=== PATIENT | male | born 1955 | race American Indian/Alaskan Native ===

== ENCOUNTER 2016-11-23 06:21 | Day surgery (SDC) | payer OTHER ==
[~2016-11-23 06:21] MED LIST: Lactated Ringers 1,000 ML IV SCH; ceFAZolin 2 GM in Premix Bag 1 BAG IV SCH
[2016-11-23] MEDS ORDERED: Dexamethasone 4 MG/ML 5 ML MDV ONE (06:51)
[2016-11-23] MEDS ORDERED: Ondansetron 4 MG/2 ML SDV ONE (06:51)
[2016-11-23] MEDS ORDERED: fentaNYL 250 MCG/5 ML SDV ONE (06:51)
[2016-11-23] MEDS ORDERED: Succinylcholine/Normal Saline 200 MG/10 ML Syringe ONE (06:51)
[2016-11-23] MEDS ORDERED: Midazolam 1 MG/ML 2 ML SDV ONE (06:51)
[2016-11-23] MEDS ORDERED: Rocuronium 10 MG/ML 10 ML Syringe ONE (06:51)
[2016-11-23] MEDS ORDERED: Propofol 200 MG/20 ML SDV ONE (06:51)
[2016-11-23] MEDS ORDERED: Neostigmine Methylsulfate 1 MG/ML 5 ML Syringe ONE (06:52)
--- NOTE | 2016-11-23 07:02 | PCM.PREANE ---
Preanesthetic Assessment - Anesthesia/Transfusion/Family Hx Anesthesia History: Prior Anesthesia Without Reaction Type of Anesthesia Reaction: Excessive Nausea/Vomiting Family History of Anesthesia Reaction: No Transfusion History: No Prior Transfusion(s) Intubation History: Unknown - Review of Systems General: No Symptoms Pulmonary: No Symptoms Cardiovascular: No Symptoms Gastrointestinal: No symptoms Neurological: No Symptoms Other: Reports: None - Physical Assessment O2 Sat by Pulse Oximetry: 98 Respiratory Rate: 16 Vital Signs: Last Vital Signs Temp 36.3 C 11/23/16 06:34 Pulse 74 11/23/16 06:34 Resp 16 11/23/16 06:34 BP 122/85 11/23/16 06:34 Pulse Ox 98 11/23/16 06:34 Height: 1.8 m Weight: 92.079 kg ASA Class: 2 Mental Status: Alert & Oriented x3 Airway Class: Mallampati = 2 Dentition: Reports: Normal Dentition Thyro-Mental Finger Breadths: 3 Mouth Opening Finger Breadths: 3 ROM/Head Extension: Full Lungs: Clear to auscultation, Normal respiratory effort Cardiovascular: Regular Rate, Regular Rhythm - Allergies Allergies/Adverse Reactions: Allergies Allergy/AdvReac Type Severity Reaction Status Date / Time morphine Allergy Nausea and Verified 11/20/16 12:18 Vomiting - Blood Blood Available: No - Anesthesia Plan Pre-Op Medication Ordered: None - Acknowledgements Anesthesia Type Planned: General Anesthesia Pt an Appropriate Candidate for the Planned Anesthesia: Yes Alternatives and Risks of Anesthesia Discussed w Pt/Guardian: Yes Pt/Guardian Understands and Agrees with Anesthesia Plan: Yes PreAnesthesia Questionnaire HEENT History: Reports: Other (See Below) Other HEENT History: wears glasses Gastrointestinal History: Reports: GERD Other Gastrointestinal History: hx diverticulitis Genitourinary History: Reports: None - Past Surgical History Head Surgeries/Procedures: Reports: None GI Surgical History: Reports: Colon (sigmoid resection), Hernia, Inguinal ( left inguinal hernia repair x2) Other GI Surgeries/Procedures: hx left hemicolectomy Male Surgical History: Reports: Vasectomy - SUBSTANCE USE Smoking Status *Q: Never Smoker Recreational Drug Use History: No - HOME MEDS Home Medications: Home Meds Fish Oil/[place]-3 Fatty Acids [Fish Oil 1,000 MG] 1,000 mg PO DAILY 11/20/16 [ History] Folic Acid 1 mg PO DAILY 11/20/16 [History] Multivits-Minerals/FA/Lycopene [One-A-Day Men's Tablet] 1 tab PO DAILY 11/20/16 [History] RABEprazole Sodium [Rabeprazole Sodium] 20 mg PO ASDIRECTED PRN 11/20/16 [ History] - CURRENT (IN HOUSE) MEDS Current Meds: Current Medications Lactated Ringer's (Ringers, Lactated) 1,000 mls @ 125 mls/hr IV ASDIRECTED ADAM Last Admin: 11/23/16 06:35 Dose: 125 mls/hr Cefazolin Sodium/Dextrose 2 gm (/ Premix) 50 mls @ 100 mls/hr IV ONETIME ADAM Discontinued Medications Dexamethasone (Dexamethasone) Confirm Administered Dose 20 mg .ROUTE .STK-MED ONE Stop: 11/23/16 06:52 Fentanyl (Sublimaze) Confirm Administered Dose 250 mcg .ROUTE .STK-MED ONE Stop: 11/23/16 06:52 Glycopyrrolate () Confirm Administered Dose 1 mg .ROUTE .STK-MED ONE Stop: 11/23/16 06:53 Lidocaine HCl (Xylocaine-Mpf 1%) Confirm Administered Dose 5 ml .ROUTE .STK-MED ONE Stop: 11/23/16 06:52 Midazolam HCl (Versed 1 Mg/Ml) Confirm Administered Dose 2 mg .ROUTE .STK-MED ONE Stop: 11/23/16 06:52 Neostigmine Methylsulfate (Neostigmine) Confirm Administered Dose 5 mg .ROUTE .STK-MED ONE Stop: 11/23/16 06:53 Ondansetron HCl (Zofran) Confirm Administered Dose 4 mg .ROUTE .STK-MED ONE Stop: 11/23/16 06:52 Propofol (Diprivan 20 Ml) Confirm Administered Dose 200 mg .ROUTE .STK-MED ONE Stop: 11/23/16 06:52 Rocuronium Holly (Zemuron) Confirm Administered Dose 100 mg .ROUTE .STK-MED ONE Stop: 11/23/16 06:52 Succinylcholine Chloride (Succinylcholine In Ns Pf) Confirm Administered Dose 200 mg .ROUTE .STK-MED ONE Stop: 11/23/16 06:52
[2016-11-23] MEDS ORDERED: ceFAZolin 1 GM Vial ONE (07:09)
[2016-11-23] MEDS ORDERED: Bupivacaine 0.5% 10 ML SDV ONE (07:09)
[2016-11-23] MEDS ORDERED: ePHEDrine 50 MG/ML SDV ONE (07:57)
[2016-11-23] MEDS ORDERED: fentaNYL 100 MCG/2 ML SDV IVPUSH PRN (08:00)
[2016-11-23] MEDS ORDERED: Acetaminophen/HYDROcodone 325-5 MG Tab PO PRN (09:20)
--- NOTE | 2016-11-23 09:24 | PCM.OPNOTE ---
- General Post-Op/Procedure Note Date of Surgery/Procedure: 11/23/16 Operative Procedure(s): Repair right inguinal hernia with large Bard Perfix plug & patch Pre Op Diagnosis: Reduciblle right inguinal hernia Post-Op Diagnosis: Same Anesthesia Technique: General ET tube (ASA II) Primary Surgeon: Neil Marsh Fluid Replacement, Intraop: 1,200 EBL in mLs: 10 Condition: Good Free Text/Narrative:: Dictation [id number]
[2016-11-23] MEDS ORDERED: Lactated Ringers 1,000 ML IV SCH (09:30)
--- NOTE | 2016-11-23 09:44 | PCM.POSTAN ---
POST ANESTHESIA ASSESSMENT - MENTAL STATUS Mental Status: alert, oriented - RESPIRATORY Respiratory Status: respiratory rate WNL, airway patent, O2 saturation stable - CARDIOVASCULAR CV Status: pulse rate WNL, blood pressure stable - GASTROINTESTINAL GI Status: no symptoms - PAIN Pain Score: 0 - POST OP HYDRATION Hydration Status: adequate & stable
[2016-11-23 14:06] VITALS: BP 128/79
--- NOTE | 2016-11-23 16:26 | OR ---
SURGEON: Neil Marsh M.D. DATE OF PROCEDURE: 11/23/2016 OPERATION PERFORMED: Repair of reducible indirect right inguinal hernia with large Bard PerFix plug and patch. ANESTHESIA: General endotracheal ASA classification. PREOPERATIVE DIAGNOSIS: Enlarging right inguinal hernia. POSTOPERATIVE DIAGNOSIS: Enlarging right inguinal hernia. ESTIMATED BLOOD LOSS: 10 mL. INTRAOPERATIVE FLUID REPLACEMENT: 1200 mL of crystalloid. DESCRIPTION OF PROCEDURE: The patient was taken to the operating room and placed on the operating table in the supine position. Time-out was called for appropriate identification of the patient and procedure. Thigh-high TEDs and sequential compression boots were placed. Following satisfactory attainment of general endotracheal anesthesia, the abdomen was prepped with DuraPrep solution and sterile drapes were applied. Skin incision was marked out in the right inguinal crease. The surgical site had been marked prior to the patient entering the operating room. The skin was now infiltrated with 10 mL of 0.5% Marcaine solution. Skin incision was made and deepened through the subcutaneous tissue. Small bleeding points were electrocoagulated. Larger vessels were ligated with 3-0 Polysorb. The external oblique was opened in the direction of its fibers. The spermatic cord was mobilized and the cord and its contents from the hernia sac. Care was taken to preserve and protect the ilioinguinal nerve, which was retracted out of harm's way. Once the hernia sac had been completely mobilized, this was easily able to be reduced. A large Bard PerFix plug and patch was brought to the operating table and soaked in 1% Ancef solution. The plug was placed into the internal ring and secured with an 0 Ethibond suture. The patch was placed over that with the wings being brought around the cord. The repair was carried out medially to laterally. Inferiorly, sutures were placed from the pubic tubercle through the patch and then transitioning to the inguinal ligament with multiple interrupted 0 Ethibond sutures. Superiorly, the sutures were placed from the mesh to the transversalis fascia. All sutures were placed under direct vision and held with hemostats. Once all the sutures had been placed, a lateral stitch was also placed to secure the wings of the patch. All sutures were tied down except the lateral stitch. The patient was given a Valsalva maneuver to 40 cm of water. The repair was solid. The lateral stitch was then secured. The wound was inspected for hemostasis. No bleeding was noted. The wound was irrigated with 1% Ancef solution. The cord was returned to its anatomic location. The external oblique fascia was closed with running 3-0 Polysorb. Lauren's fascia was reapproximated with running 3-0 Polysorb. The skin was reapproximated with subcuticular 4-0 Monocryl reinforced with Steri-Strips. Sterile Tegaderm pad was placed as a dressing. Sponge, needle, and instrument counts were all correct. The patient tolerated the procedure well. Following emergence from anesthesia and extubation, the patient was taken to recovery room in stable condition. JOLYNN / HERNANDO /[id number]
== END 2016-11-23 15:31 | disposition home or self-care (01) ==
LOC: MW.SDS 06:21
PROVIDERS: ATTEND Surgery
DX: K40.90 Unilateral inguinal hernia, without obstruction or gangrene, not specified as recurrent (principal); K21.9 Gastro-esophageal reflux disease without esophagitis; Z88.5 Allergy status to narcotic agent; Z90.49 Acquired absence of other specified parts of digestive tract; Z79.899 Other long term (current) drug therapy; Z87.19 Personal history of other diseases of the digestive system; Z98.890 Other specified postprocedural states
CPT/HCPCS: 49505; A9270; C1781; J0690; J1100; J2250; J2405; J3010; J7120; 00830; J2704

== ENCOUNTER 2017-06-27 07:02 | Day surgery (SDC) | payer OTHER ==
[~2017-06-27 07:02] MED LIST changes: -ceFAZolin 2 GM in Premix Bag 1 BAG IV SCH
[2017-06-27] MEDS ORDERED: Lidocaine 1% 20 ML MDV ONE (07:30)
[2017-06-27] MEDS ORDERED: Dexamethasone 4 MG/ML 5 ML MDV ONE (07:44)
[2017-06-27] MEDS ORDERED: Ondansetron 4 MG/2 ML SDV ONE (07:44)
[2017-06-27] MEDS ORDERED: diphenhydrAMINE 50 MG/ML SDV ONE (07:44)
[2017-06-27] MEDS ORDERED: Midazolam 1 MG/ML 2 ML SDV ONE (07:45)
[2017-06-27] MEDS ORDERED: Propofol 200 MG/20 ML SDV ONE (07:45)
[2017-06-27] MEDS ORDERED: fentaNYL 100 MCG/2 ML SDV ONE (07:45)
[2017-06-27] MEDS ORDERED: Acetaminophen/HYDROcodone 325-5 MG Tab PO PRN (08:00)
[2017-06-27] MEDS ORDERED: Ondansetron 4 MG Tab.DIS PO PRN (08:00)
[2017-06-27] MEDS ORDERED: ceFAZolin 2 GM in Premix Bag 1 BAG IV SCH (08:00)
[2017-06-27] MEDS ORDERED: Scopolamine 1.5 MG Transdermal Patch TRDERM PRN (08:26)
--- NOTE | 2017-06-27 08:26 | PCM.PREANE ---
Preanesthetic Assessment - Procedure Proposed Procedure: right knee arthroscopy and menisectomy - Anesthesia/Transfusion/Family Hx Anesthesia History: Prior Anesthesia Reaction Other Type of Anesthesia Reaction Comment: nausea after anesthesia Transfusion History: No Prior Transfusion(s) Intubation History: Unknown - Review of Systems General: No Symptoms Pulmonary: No Symptoms Cardiovascular: No Symptoms Gastrointestinal: Nausea (with all anesthetics; can take hydrocodone though for analgesia) Neurological: Gait Disturbance (pain in right knee) - Physical Assessment NPO Status Date: 06/26/17 NPO Status Time: 23:00 O2 Sat by Pulse Oximetry: 95 Respiratory Rate: 16 Vital Signs: Last Vital Signs Temp 98.8 F 06/27/17 07:30 Pulse 70 06/27/17 07:30 Resp 16 06/27/17 07:30 BP 119/81 06/27/17 07:30 Pulse Ox 95 06/27/17 07:30 Height: 5 ft 11 in Weight: 200 lb ASA Class: 2 Mental Status: Alert & Oriented x3 Airway Class: Mallampati = 1 Dentition: Reports: Normal Dentition Thyro-Mental Finger Breadths: 3 Mouth Opening Finger Breadths: 3 ROM/Head Extension: Full Lungs: Clear to Auscultation, Normal Respiratory Effort Cardiovascular: Regular Rate, Regular Rhythm, No Murmurs - Allergies Allergies/Adverse Reactions: Allergies Allergy/AdvReac Type Severity Reaction Status Date / Time morphine Allergy Nausea and Verified 06/25/17 10:10 Vomiting - Blood Blood Available: No Product(s) Available: None - Acknowledgements Anesthesia Type Planned: General Anesthesia (LMA; scopolamine patch and zofran preop) Pt an Appropriate Candidate for the Planned Anesthesia: Yes Alternatives and Risks of Anesthesia Discussed w Pt/Guardian: Yes Pt/Guardian Understands and Agrees with Anesthesia Plan: Yes PreAnesthesia Questionnaire HEENT History: Reports: Other (See Below) Other HEENT History: wears glasses Gastrointestinal History: Reports: Diverticulosis, GERD Other Gastrointestinal History: hx diverticulitis Genitourinary History: Reports: None - Past Surgical History GI Surgical History: Reports: Hernia, Inguinal, Small Bowel Other GI Surgeries/Procedures: Left Hemicolectomy to repair Ruptured Diverticulum Male Surgical History: Reports: Vasectomy - SUBSTANCE USE Smoking Status *Q: Never Smoker Recreational Drug Use History: No - HOME MEDS Home Medications: Home Meds Fish Oil/[place]-3 Fatty Acids [Fish Oil 1,000 MG] 1,000 mg PO DAILY 11/20/16 [ History] Folic Acid 1 mg PO DAILY 11/20/16 [History] Multivits-Minerals/FA/Lycopene [One-A-Day Men's Tablet] 1 tab PO DAILY 11/20/16 [History] RABEprazole Sodium [Rabeprazole Sodium] 20 mg PO ASDIRECTED PRN 11/20/16 [ History] Krill/Om-3/DHA/EPA/Phospho/Ast [Krill Oil 1,000 mg Softgel] 1 cap PO DAILY 06/25 [History] - CURRENT (IN HOUSE) MEDS Current Meds: Current Medications Hydrocodone Bitart/Acetaminophen (Dana 325-5 Mg) 1 - 2 tab PO Q4H PRN PRN Reason: Pain Cefazolin Sodium/Dextrose 2 gm (/ Premix) 50 mls @ 100 mls/hr IV ONCALL ADAM Lactated Ringer's (Ringers, Lactated) 1,000 mls @ 100 mls/hr IV ASDIRECTED ADAM Last Admin: 06/27/17 07:39 Dose: 100 mls/hr Ondansetron HCl (Zofran Odt) 4 mg PO Q8H PRN PRN Reason: Nausea/Vomiting Discontinued Medications Dexamethasone (Dexamethasone) Confirm Administered Dose 20 mg .ROUTE .STK-MED ONE Stop: 06/27/17 07:45 Diphenhydramine HCl (Benadryl) Confirm Administered Dose 50 mg .ROUTE .STK-MED ONE Stop: 06/27/17 07:45 Fentanyl (Sublimaze) Confirm Administered Dose 200 mcg .ROUTE .STK-MED ONE Stop: 06/27/17 07:46 Lidocaine HCl (Xylocaine 1%) Confirm Administered Dose 20 ml .ROUTE .STK-MED ONE Stop: 06/27/17 07:31 Midazolam HCl (Versed 1 Mg/Ml) Confirm Administered Dose 2 mg .ROUTE .STK-MED ONE Stop: 06/27/17 07:46 Ondansetron HCl (Zofran) Confirm Administered Dose 4 mg .ROUTE .STK-MED ONE Stop: 06/27/17 07:45 Propofol (Diprivan 20 Ml) Confirm Administered Dose 200 mg .ROUTE .STK-MED ONE Stop: 06/27/17 07:46
[2017-06-27] MEDS ORDERED: Ondansetron 4 MG/2 ML SDV IVPUSH SCH (08:30)
[2017-06-27] MEDS ORDERED: ePHEDrine 50 MG/ML SDV ONE (09:03)
--- NOTE | 2017-06-27 09:34 | PCM.OPNOTE ---
- General Post-Op/Procedure Note Date of Surgery/Procedure: 06/27/17 Operative Procedure(s): R knee scope with PMM Post-Op Diagnosis: R knee med meniscus tear, DJD R knee Anesthesia Technique: General LMA Primary Surgeon: Karissa GOODMAN in mLs: 5 Condition: Good Free Text/Narrative:: tt=15 min #[id number]
[2017-06-27] MEDS ORDERED: fentaNYL 100 MCG/2 ML SDV IVPUSH ONE (09:53)
--- NOTE | 2017-06-27 10:15 | PCM.POSTAN ---
POST ANESTHESIA ASSESSMENT - MENTAL STATUS Mental Status: Alert, Oriented - RESPIRATORY Respiratory Status: Respiratory Rate WNL, Airway Patent, O2 Saturation Stable - CARDIOVASCULAR CV Status: Pulse Rate WNL, Blood Pressure Stable - GASTROINTESTINAL GI Status: No Symptoms Free Text/Narrative:: No nausea; s/p emetic prophylaxis - seems to be working! - POST OP HYDRATION Hydration Status: Adequate & Stable
--- NOTE | 2017-06-27 10:50 | OR ---
SURGEON: Karissa Olmos MD DATE OF PROCEDURE: 06/27/2017 PREOPERATIVE DIAGNOSIS: Right knee medial meniscus tear. POSTOPERATIVE DIAGNOSES: 1. Right knee medial meniscus tear. 2. Degenerative joint disease, right knee. PROCEDURE: Right knee arthroscopy with partial medial meniscectomy. INSURANCE ACCOUNT REPRESENTATIVE: Liz Martinez RN. ANESTHESIA: General. ESTIMATED BLOOD LOSS: 5 mL. TOURNIQUET TIME: 15 minutes. COMPLICATIONS: None. DVT PROPHYLAXIS: Not indicated. IMPLANTS USED: None. BRIEF HISTORY: Rogelio is a 61-year-old male, who has had complaint of right knee pain. An MRI did show a tear of the medial meniscus. Due to his lack of response to conservative treatment, I did recommend surgical intervention. The risks and goals of procedure were discussed with the patient and were documented preoperatively. He agreed to proceed. DESCRIPTION OF PROCEDURE: The patient was properly identified and brought to the operating room. He was transferred from the OR cart and placed on the operating room table in supine position. General anesthesia was administered. After adequate anesthesia was obtained, a well-padded tourniquet was applied to the right lower extremity. The right lower extremity was then prepped in standard fashion using ChloraPrep solution. It was then sterilely draped. A time-out was performed to ensure correct site and procedure. Preoperative antibiotics were given. The surgical site had been marked preoperatively. An Esmarch was used to exsanguinate the right lower extremity and the tourniquet was inflated to 250 mmHg. A lateral portal arthrotomy was established. Blunt trocar and cannula were introduced into the suprapatellar pouch. Camera, inflow, and outflow were assembled. Suprapatellar pouch showed no signs of synovitis. The patellofemoral joint was then visualized. Diffuse grade 3 chondromalacia was noted along the undersurface of the patella. The trochlear groove showed no significant degenerative findings. The patella appeared to track centrally. I then extended down the lateral and medial gutter. No loose bodies were identified. I then entered the medial compartment. A medial portal arthrotomy was established. A blunt probe was inserted. He was found to have a degenerative tear along the posterior horn of the medial meniscus which appeared unstable. Using a combination of biters and shaver, this was resected back to a stable remnant. It was again probed and found to be stable. He was found to have diffuse grade 2 to grade 3 chondromalacia along the medial femoral condyle. Grade 2 chondromalacia was noted along the medial tibial plateau. I then entered the notch. He did have some hypertrophy of the synovium which was resected with the shaver. The ACL and PCL were both visualized and probed and found to be intact. I then entered the lateral compartment. Grade 1 to grade 2 chondromalacia was noted diffusely along the lateral tibial plateau as well as the lateral femoral condyle. The meniscus was probed. Minor degenerative fraying was noted along the central portion. The meniscus appeared to be stable. The instruments were then removed from the knee. The portal sites were closed with 3-0 nylon. Lidocaine 1% was injected along the portal tracts. Xeroform gauze was placed over the wound and a bulky dressing was applied. The tourniquet was then deflated. He was awakened from his anesthetic and transferred back to the operating room cart. He was brought to recovery room in stable condition. All needle and sponge counts were correct. MARLENE / HERNANDO /[id number]
--- NOTE | 2017-06-27 11:38 | PCM48HPAN ---
Post Anesthesia Note - EVALUATION WITHIN 48HRS OF ANESTHETIC Vital Signs in Normal Range: Yes Patient Participated in Evaluation: Yes Respiratory Function Stable: Yes Airway Patent: Yes Cardiovascular Function Stable: Yes Hydration Status Stable: Yes Pain Control Satisfactory: Yes Nausea and Vomiting Control Satisfactory: Yes Mental Status Recovered: Yes
[2017-06-27 13:48] VITALS: BP 127/79
== END 2017-06-27 12:30 | disposition home or self-care (01) ==
LOC: MW.SDS 07:02
PROVIDERS: ATTEND Orthopaedic Surgery
DX: S83.241A Other tear of medial meniscus, current injury, right knee, initial encounter (principal); M17.11 Unilateral primary osteoarthritis, right knee; K21.9 Gastro-esophageal reflux disease without esophagitis; K40.90 Unilateral inguinal hernia, without obstruction or gangrene, not specified as recurrent; Z88.6 Allergy status to analgesic agent; Z79.899 Other long term (current) drug therapy; Z98.52 Vasectomy status; Z98.890 Other specified postprocedural states
CPT/HCPCS: 29881; 88304; A9270; J1100; J1200; J2250; J2405; J3010; J7120; 01400; J2704

== ENCOUNTER 2020-06-04 06:30 | Day surgery (SDC) | payer MEDICARE, OTHER ==
--- NOTE | 2020-06-04 07:12 | PCM.PREANE ---
Preanesthetic Assessment - Anesthesia/Transfusion/Family Hx Anesthesia History: Prior Anesthesia Reaction Type of Anesthesia Reaction: Excessive Nausea/Vomiting Other Type of Anesthesia Reaction Comment: nausea after anesthesia Transfusion History: No Prior Transfusion(s) Intubation History: Unknown - Review of Systems General: No Symptoms Pulmonary: No Symptoms Cardiovascular: No Symptoms Neurological: No Symptoms Other: Reports: None - Physical Assessment NPO Status Date: 06/03/20 Vital Signs: Last Vital Signs Temp 96.8 F L 06/04/20 06:44 Pulse 79 06/04/20 06:44 Resp 15 06/04/20 06:44 BP 115/73 06/04/20 06:44 Pulse Ox 98 06/04/20 06:44 Height: 5 ft 11 in Weight: 98.883 kg ASA Class: 2 Mental Status: Alert & Oriented x3 Airway Class: Mallampati = 1 Dentition: Reports: Normal Dentition ROM/Head Extension: Full Lungs: Clear to Auscultation, Normal Respiratory Effort Cardiovascular: Regular Rate, Regular Rhythm - Allergies Allergies/Adverse Reactions: Allergies Allergy/AdvReac Type Severity Reaction Status Date / Time morphine Allergy Nausea and Verified 05/31/20 07:52 Vomiting - Blood Blood Available: No - Anesthesia Plan Pre-Op Medication Ordered: None - Acknowledgements Anesthesia Type Planned: General Anesthesia (tiva) Pt an Appropriate Candidate for the Planned Anesthesia: Yes Alternatives and Risks of Anesthesia Discussed w Pt/Guardian: Yes Pt/Guardian Understands and Agrees with Anesthesia Plan: Yes PreAnesthesia Questionnaire HEENT History: Reports: Other (See Below) Other HEENT History: wears glasses Cardiovascular History: Reports: None Respiratory History: Reports: None Gastrointestinal History: Reports: Diverticulosis, GERD Other Gastrointestinal History: hx diverticulitis Genitourinary History: Reports: None Musculoskeletal History: Reports: None Neurological History: Reports: None Psychiatric History: Reports: None Endocrine/Metabolic History: Reports: None Hematologic History: Reports: None Immunologic History: Reports: None Oncologic (Cancer) History: Reports: None Dermatologic History: Reports: None - Infectious Disease History Infectious Disease History: Reports: None - Past Surgical History Head Surgeries/Procedures: Reports: None HEENT Surgical History: Reports: None Cardiovascular Surgical History: Reports: None Respiratory Surgical History: Reports: None GI Surgical History: Reports: Hernia, Inguinal, Small Bowel Other GI Surgeries/Procedures: Left Hemicolectomy to repair Ruptured Diverticulum Male Surgical History: Reports: Vasectomy Endocrine Surgical History: Reports: None Neurological Surgical History: Reports: None Musculoskeletal Surgical History: Reports: Arthroscopic Knee Oncologic Surgical History: Reports: None Dermatological Surgical History: Reports: None - SUBSTANCE USE Tobacco Use Status *Q: Never Tobacco User Recreational Drug Use History: No - HOME MEDS Home Medications: Home Meds Multivit-Min/Folic/Vit K/Lycop [One-A-Day Men's Tablet] 1 tab PO DAILY 11/20/16 [History] RABEprazole Sodium [Rabeprazole Sodium] 20 mg PO ASDIRECTED PRN 11/20/16 [Hist ory] Folic Acid 1 tab PO DAILY 05/31/20 [History] Krill/Om-3/DHA/EPA/Phospho/Ast [Krill Oil 1,000 mg Softgel] 1 tab PO DAILY 05/31/20 [History] - CURRENT (IN HOUSE) MEDS Current Meds: Current Medications Lactated Ringer's (Ringers, Lactated) 1,000 mls @ 125 mls/hr IV ASDIRECTED ADAM
--- NOTE | 2020-06-04 08:44 | PCM.OPNOTE ---
- General Post-Op/Procedure Note Date of Surgery/Procedure: 06/04/20 Operative Procedure(s): Esophagogastroduodenoscopy with gastric and esophageal biopsies and gastric polypectomy. Colonoscopy with cold transverse colon polypectomy. Pre Op Diagnosis: Progressive heartburn. Desire for colorectal cancer screening. Post-Op Diagnosis: Mild to moderate gastritis. Gastric polyps. Distal esophagitis. Transverse colon polyp. Sigmoid diverticulosis. Anesthesia Technique: MAC (ASA II) Primary Surgeon: Neil Marsh Blender Machine Operator: Radha Chao Condition: Good Free Text/Narrative:: Intake & Output 06/03/20 06/04/20 06/04/20 19:59 03:59 11:59 Intake Total 1000 Balance 1000 DICTATION [id number] CPT CODE [id number]/[id number]
[2020-06-04 08:47] VITALS: PULSE 79
[2020-06-04 09:54] VITALS: BP 132/89
--- NOTE | 2020-06-04 10:35 | PCM48HPAN ---
Post Anesthesia Note - EVALUATION WITHIN 48HRS OF ANESTHETIC Vital Signs in Normal Range: Yes Patient Participated in Evaluation: Yes Respiratory Function Stable: Yes Airway Patent: Yes Cardiovascular Function Stable: Yes Hydration Status Stable: Yes Pain Control Satisfactory: Yes Nausea and Vomiting Control Satisfactory: Yes Mental Status Recovered: Yes Vital Signs: Last Vital Signs Temp 97.7 F 06/04/20 08:55 Pulse 79 06/04/20 08:55 Resp 15 06/04/20 08:55 BP 132/89 06/04/20 08:55 Pulse Ox 95 06/04/20 08:55
--- NOTE | 2020-06-04 10:35 | PCM.POSTAN ---
POST ANESTHESIA ASSESSMENT - MENTAL STATUS Mental Status: Alert, Oriented - VITAL SIGNS Vital Signs: Last Vital Signs Temp 97.7 F 06/04/20 08:55 Pulse 79 06/04/20 08:55 Resp 15 06/04/20 08:55 BP 132/89 06/04/20 08:55 Pulse Ox 95 06/04/20 08:55 - RESPIRATORY Respiratory Status: Respiratory Rate WNL, Airway Patent, O2 Saturation Stable - CARDIOVASCULAR CV Status: Pulse Rate WNL, Blood Pressure Stable - GASTROINTESTINAL GI Status: No Symptoms - POST OP HYDRATION Hydration Status: Adequate & Stable
--- NOTE | 2020-06-07 10:21 | OR ---
SURGEON: Neil Marsh M.D. DATE OF PROCEDURE: 06/04/2020 OPERATION PERFORMED: Colonoscopy with transverse colon cold polypectomy. PRIMARY SURGEON: Neil Marsh MD. ANESTHESIA: MAC. REAL ESTATE CLOSER: KEYLA Schulz, student. ASA CLASSIFICATION: II. PREOPERATIVE DIAGNOSIS: Desire for colorectal cancer screening. POSTOPERATIVE DIAGNOSES: 1. Transverse colon polyp. 2. Mild sigmoid diverticulosis. DESCRIPTION OF PROCEDURE: With the patient having completed upper GI endoscopy, he was maintained in the left lateral decubitus position. The colonoscope was inserted into the rectum and advanced with minimal difficulty to the cecum. The cecum was identified by internal landmarks and external pressure. The colonoscope was retroflexed to visualize the ascending colon from below, then straightened and slowly withdrawn. The cecum, ascending colon, proximal and mid transverse colon, and hepatic flexure showed no tumors, polyps, diverticula, or angiodysplastic changes. One small polyp was encountered in the distal transverse colon and removed with cold biopsy forceps. The remainder of the transverse colon, splenic flexure, and descending colon showed no tumors, polyps, diverticula, or angiodysplastic changes. A few scattered diverticula were noted in the sigmoid colon. Once the colonoscope was withdrawn to the rectum, it was retroflexed to visualize the anal orifice from above. No tumors or polyps were seen, and there were no acute hemorrhoidal changes. The colonoscope was then straightened, the rectum aspirated, and the colonoscope removed. The patient tolerated the procedure well and was taken to recovery room in stable condition. JOLYNN / HERNANDO /[id number]
--- NOTE | 2020-06-07 10:21 | OR ---
SURGEON: Neil Marsh M.D. DATE OF PROCEDURE: 06/04/2020 OPERATION PERFORMED: Esophagogastroduodenoscopy with gastric and esophageal biopsies. PRIMARY SURGEON: Neil Marsh MD. ANESTHESIA: MAC ASA CLASSIFICATION: II. PREOPERATIVE DIAGNOSIS: Progressive heartburn. POSTOPERATIVE DIAGNOSES: 1. Fwji-[id number] chronic gastritis without ulceration. 2. Gastric polyps. 3. Distal esophagitis. DESCRIPTION OF PROCEDURE: The patient was taken to the endoscopy room and positioned on the endoscopy table in the left lateral decubitus position. A time-out was called for appropriate identification of the patient and procedure. Bite block was placed between the patient's teeth. With satisfactory achievement of sedation, the gastroscope was inserted into the mouth and advanced through the esophagus and stomach into the duodenum, where examination was carried out in a retrograde fashion. The duodenum showed no acute inflammatory changes or ulcerations. The stomach does show lmyt-ex-alkgyepy gastritis. No ulcerations were noted. The gastroscope was retroflexed to visualize the proximal stomach. No significant hiatal hernia was noted. Other than gastric polyps, no other pathology was noted in the upper stomach. The gastroscope was then straightened and slowly withdrawn, carefully visualizing the greater and lesser curvatures. Several small polyps were encountered in the stomach, and several of these were removed for histologic analysis using the biopsy forceps. Once the gastroscope was withdrawn to the GE junction, there was some mild inflammatory change in the very distal esophagus extending over approximately 1 cm area. Separate biopsies of this area were obtained. The esophagus itself demonstrated good contractility. No mid or proximal esophageal lesions were identified. The vocal cords were briefly visualized as the scope was withdrawn. No vocal cord lesions were identified. The vocal cords do move symmetrically. The gastroscope was then removed with the patient having tolerated the procedure well. Following colonoscopy, he was taken to recovery room in stable condition. JOLYNN / HERNANDO /[id number]
== END 2020-06-04 09:25 | disposition home or self-care (01) ==
LOC: MW.SDS 06:30
PROVIDERS: ATTEND Surgery
DX: K29.50 Unspecified chronic gastritis without bleeding (principal); K25.9 Gastric ulcer, unspecified as acute or chronic, without hemorrhage or perforation; K31.7 Polyp of stomach and duodenum; K20.90 Esophagitis, unspecified without bleeding; K31.89 Other diseases of stomach and duodenum; K44.9 Diaphragmatic hernia without obstruction or gangrene; Z88.5 Allergy status to narcotic agent
CPT/HCPCS: 43239; J7120; 00813; 88305; 88312

== ENCOUNTER 2020-06-14 06:31 | Day surgery (SDC) | payer MEDICARE, OTHER ==
[~2020-06-14 06:31] MED LIST changes: +Glycopyrrolate 0.2 MG/ML SDV ONE; +Lidocaine 2% 5 ML SDV ONE; +Midazolam 1 MG/ML 2 ML SDV ONE; +Propofol 200 MG/20 ML SDV ONE; +ceFAZolin 2 GM in Premix Bag 1 BAG IV ONE; +ePHEDrine 50 MG/ML SDV ONE; +fentaNYL 100 MCG/2 ML SDV ONE
--- NOTE | 2020-06-14 07:14 | PCM.PREANE ---
Preanesthetic Assessment - Anesthesia/Transfusion/Family Hx Anesthesia History: Prior Anesthesia Reaction Other Type of Anesthesia Reaction Comment: nausea after anesthesia Family History of Anesthesia Reaction: No Transfusion History: No Prior Transfusion(s) Intubation History: Unknown - Review of Systems General: No Symptoms Pulmonary: No Symptoms Cardiovascular: No Symptoms Gastrointestinal: No Symptoms Neurological: No Symptoms Other: Reports: None - Physical Assessment NPO Status Date: 06/13/20 Vital Signs: Last Vital Signs Temp 96.8 F L 06/14/20 06:35 Pulse 68 06/14/20 06:35 Resp 15 06/14/20 06:35 BP 138/94 H 06/14/20 06:35 Pulse Ox 97 06/14/20 06:35 Height: 5 ft 11 in Weight: 98.883 kg ASA Class: 1 Mental Status: Alert & Oriented x3 Airway Class: Mallampati = 2 Dentition: Reports: Normal Dentition ROM/Head Extension: Full Lungs: Clear to Auscultation, Normal Respiratory Effort Cardiovascular: Regular Rate, Regular Rhythm - Allergies Allergies/Adverse Reactions: Allergies Allergy/AdvReac Type Severity Reaction Status Date / Time morphine Allergy Nausea and Verified 06/08/20 08:48 Vomiting - Blood Blood Available: No - Anesthesia Plan Pre-Op Medication Ordered: None - Acknowledgements Anesthesia Type Planned: General Anesthesia Pt an Appropriate Candidate for the Planned Anesthesia: Yes Alternatives and Risks of Anesthesia Discussed w Pt/Guardian: Yes Pt/Guardian Understands and Agrees with Anesthesia Plan: Yes Additional Comments: PMH: gerd PLAN: ga/lma PreAnesthesia Questionnaire HEENT History: Reports: Other (See Below) Other HEENT History: wears glasses Cardiovascular History: Reports: None Respiratory History: Reports: None Gastrointestinal History: Reports: Diverticulosis, GERD Other Gastrointestinal History: hx diverticulitis Genitourinary History: Reports: None Musculoskeletal History: Reports: None Neurological History: Reports: None Psychiatric History: Reports: None Endocrine/Metabolic History: Reports: Obesity/BMI 30+ Hematologic History: Reports: None Immunologic History: Reports: None Oncologic (Cancer) History: Reports: None Dermatologic History: Reports: None - Infectious Disease History Infectious Disease History: Reports: Measles Other Infectious Disease History: when a child - Past Surgical History Head Surgeries/Procedures: Reports: None HEENT Surgical History: Reports: None Cardiovascular Surgical History: Reports: None Respiratory Surgical History: Reports: None GI Surgical History: Reports: Hernia, Inguinal, Small Bowel Other GI Surgeries/Procedures: Left Hemicolectomy to repair Ruptured Diverticulum Female Surgical History: Reports: None Male Surgical History: Reports: Vasectomy Neurological Surgical History: Reports: None Musculoskeletal Surgical History: Reports: Arthroscopic Knee Oncologic Surgical History: Reports: None - SUBSTANCE USE Tobacco Use Status *Q: Never Tobacco User - HOME MEDS Home Medications: Home Meds Multivit-Min/Folic/Vit K/Lycop [One-A-Day Men's Tablet] 1 tab PO DAILY 11/20/16 [History] RABEprazole Sodium [Rabeprazole Sodium] 20 mg PO ASDIRECTED PRN 11/20/16 [History] Folic Acid 1 tab PO DAILY 05/31/20 [History] Krill/Om-3/DHA/EPA/Phospho/Ast [Krill Oil 1,000 mg Softgel] 1 tab PO DAILY 05/31/20 [History] - CURRENT (IN HOUSE) MEDS Current Meds: Current Medications Lactated Ringer's (Ringers, Lactated) 1,000 mls @ 125 mls/hr IV ASDIRECTED [facility] Last Admin: 06/14/20 07:00 Dose: 125 mls/hr Documented by: Discontinued Medications Ephedrine Sulfate (Ephedrine Sulfate) Confirm Administered Dose 50 mg .ROUTE .STK-MED ONE Stop: 06/04/20 08:17 Fentanyl (Sublimaze) Confirm Administered Dose 100 mcg .ROUTE .STK-MED ONE Stop: 06/04/20 07:08 Glycopyrrolate (Robinul) Confirm Administered Dose 0.2 mg .ROUTE .STK-MED ONE Stop: 06/04/20 08:04 Glycopyrrolate (Robinul) Confirm Administered Dose 0.2 mg .ROUTE .STK-MED ONE Stop: 06/04/20 08:04 Lactated Ringer's (Ringers, Lactated) 1,000 mls @ 125 mls/hr IV ASDIRECTED [facility] Cefazolin Sodium/Dextrose 2 gm (/ Premix) 50 mls @ 100 mls/hr IV ONETIME ONE Stop: 06/14/20 06:29 Lidocaine (Xylocaine-Mpf 2%) Confirm Administered Dose 5 ml .ROUTE .STK-MED ONE Stop: 06/04/20 07:08 Midazolam HCl (Versed 1 Mg/Ml) Confirm Administered Dose 2 mg .ROUTE .STK-MED ONE Stop: 06/04/20 07:08 Propofol (Diprivan 20 Ml) Confirm Administered Dose 400 mg .ROUTE .STK-MED ONE Stop: 06/04/20 07:08 Propofol (Diprivan 20 Ml) Confirm Administered Dose 200 mg .ROUTE .STK-MED ONE Stop: 06/04/20 08:17
[2020-06-14] MEDS ORDERED: Bupivacaine 0.5% 10 ML SDV ONE (07:15)
[2020-06-14] MEDS ORDERED: ceFAZolin 1 GM Vial ONE (07:15)
[2020-06-14] MEDS ORDERED: Midazolam 1 MG/ML 2 ML SDV ONE (07:21)
[2020-06-14] MEDS ORDERED: Ketorolac 30 MG/ML SDV ONE (07:21)
[2020-06-14] MEDS ORDERED: Ondansetron 4 MG/2 ML SDV ONE (07:21)
[2020-06-14] MEDS ORDERED: fentaNYL 100 MCG/2 ML SDV ONE ×2 (07:21→08:28)
[2020-06-14] MEDS ORDERED: Propofol 200 MG/20 ML SDV ONE ×5 (07:21→08:57)
[2020-06-14] MEDS ORDERED: HYDROmorphone 2 MG/ML Syringe ONE ×2 (07:22)
[2020-06-14] MEDS ORDERED: Lidocaine 2% 5 ML SDV ONE (07:24)
[2020-06-14] MEDS ORDERED: ceFAZolin/Dextrose,Iso-Osmotic 2 GM/50 ML Duplex Bag IV ONE (07:25)
--- NOTE | 2020-06-14 07:49 | PCM.SN.2 ---
- Free Text/Narrative Note: Clarified GERD with patient. Only occasional, and limited to post-prandial. No symptoms this AM. Okay to proceed with LMA.
[2020-06-14] MEDS ORDERED: Ketamine 500 mg/10 ML MDV ONE (07:59)
[2020-06-14] MEDS ORDERED: ePHEDrine 50 MG/ML SDV ONE (08:04)
[2020-06-14] MEDS ORDERED: Acetaminophen/HYDROcodone 325-5 MG Tab PO PRN (09:33)
[2020-06-14] MEDS ORDERED: Ondansetron 4 MG/2 ML SDV IVPUSH PRN (09:33)
--- NOTE | 2020-06-14 09:36 | PCM.OPNOTE ---
- General Post-Op/Procedure Note Date of Surgery/Procedure: 06/14/20 Operative Procedure(s): Repair incarcerated incisional hernia with 4.3 cm Ventralex mesh Pre Op Diagnosis: Incarcerated incisional hernia Post-Op Diagnosis: Same Anesthesia Technique: General LMA (ASA I) Primary Surgeon: Neil Marsh Fluid Replacement, Intraop: 1,000 EBL in mLs: 10 Condition: Good Free Text/Narrative:: DICTATION [id number] CPT CODE 81216/66912
[2020-06-14] MEDS ORDERED: Lactated Ringers 1,000 ML IV SCH (09:45)
[2020-06-14] MEDS ORDERED: Haloperidol Lactate 5 MG/ML SDV IM ONE ×2 (11:31→13:00)
--- NOTE | 2020-06-14 11:32 | PCM.POSTAN ---
POST ANESTHESIA ASSESSMENT - MENTAL STATUS Mental Status: Alert, Oriented - VITAL SIGNS Vital Signs: Last Vital Signs Temp 97.5 F 06/14/20 09:55 Pulse 78 06/14/20 10:55 Resp 14 06/14/20 10:55 BP 103/66 06/14/20 10:55 Pulse Ox 93 L 06/14/20 10:55 - RESPIRATORY Respiratory Status: Respiratory Rate WNL, Airway Patent, O2 Saturation Stable - CARDIOVASCULAR CV Status: Pulse Rate WNL, Blood Pressure Stable - GASTROINTESTINAL GI Status: No Symptoms - POST OP HYDRATION Hydration Status: Adequate & Stable
[2020-06-14] MEDS ORDERED: Haloperidol Lactate 5 MG/ML SDV ONE (11:35)
[2020-06-14 12:27] VITALS: BP 122/71; PULSE 83
--- NOTE | 2020-06-14 13:21 | OR ---
SURGEON: Neil Marsh M.D. DATE OF PROCEDURE: 06/14/2020 OPERATION PERFORMED: Repair of incarcerated incisional hernia with 4.3 cm Ventralex mesh. ANESTHESIA: General LMA. ASA CLASSIFICATION: I. PREOPERATIVE DIAGNOSIS: Incarcerated incisional hernia. POSTOPERATIVE DIAGNOSIS: Incarcerated incisional hernia. ESTIMATED BLOOD LOSS: 10 mL. INTRAOPERATIVE FLUID REPLACEMENT: 1000 mL of crystalloid. DESCRIPTION OF PROCEDURE: The patient was taken to the operating room and placed on the operating table in the supine position. Time-out was called for appropriate identification of the patient and procedure. Sequential compression boots were placed. Following satisfactory attainment of general anesthesia with placement of an LMA, the abdomen was prepped with DuraPrep solution and sterile drapes were applied. Surgical site had been marked and identified prior to the patient entering the operating room. The upper midline incision was now infiltrated with 10 mL of 0.5% Marcaine solution. Skin incision was made and deepened through the subcutaneous tissue obtaining hemostasis with the use of electrocautery. The hernia sac was readily identified, and using a combination of sharp and blunt dissection with electrocautery, the hernia sac was completely dissected away from the underlying fascia. Once that was accomplished, I was able to reduce the hernia sac. The defect was approximately quarter-sized. A 4.3 cm Ventralex mesh was brought to the operating table. This was soaked in 1% Ancef solution. The Ventralex was then placed in an underlay technique and secured with multiple interrupted 0 Ethibond sutures. All sutures were held with hemostats until the final stitch had been placed. The sutures were then secured. Wound was inspected for hemostasis. The repair was solid. The fascia was then closed again over the mesh to create 1 more layer between the mesh and the outside environment. Wound was irrigated with 1% Ancef solution. Subcutaneous tissue was reapproximated with running 2-0 Vicryl. Skin edges were reapproximated with subcuticular 4-0 Monocryl reinforced with half-inch plain Steri-Strips. The wound was then dressed with a sterile Tegaderm pad. Sponge, needle, and instrument counts were all correct. Following emergence from anesthesia and extubation, the patient was taken to recovery room in stable condition. JOLYNN / HERNANDO /[id number]
--- NOTE | 2020-06-14 14:10 | PCM48HPAN ---
Post Anesthesia Note - EVALUATION WITHIN 48HRS OF ANESTHETIC Vital Signs in Normal Range: Yes Patient Participated in Evaluation: Yes Respiratory Function Stable: Yes Airway Patent: Yes Cardiovascular Function Stable: Yes Hydration Status Stable: Yes Pain Control Satisfactory: Yes Nausea and Vomiting Control Satisfactory: Yes Mental Status Recovered: Yes Vital Signs: Last Vital Signs Temp 97.5 F 06/14/20 09:55 Pulse 83 06/14/20 12:25 Resp 14 06/14/20 12:25 BP 122/71 06/14/20 12:25 Pulse Ox 94 L 06/14/20 12:25
== END 2020-06-14 14:20 | disposition home or self-care (01) ==
LOC: MW.SDS 06:31
PROVIDERS: ATTEND Surgery
DX: K43.0 Incisional hernia with obstruction, without gangrene (principal); E66.9 Obesity, unspecified; K21.9 Gastro-esophageal reflux disease without esophagitis; Z98.890 Other specified postprocedural states; Z88.5 Allergy status to narcotic agent; Z79.899 Other long term (current) drug therapy; Z68.30 Body mass index [BMI] 30.0-30.9, adult
CPT/HCPCS: 49560; 49568; C1781; J0131; J0690; J1170; J1630; J1885; J2001; J2250; J2704; J3010; J3490; J7120; J2405

== ENCOUNTER 2023-05-23 13:07 | Emergency (ER) | payer MEDICARE, OTHER ==
[2023-05-23] MEDS ORDERED: Ondansetron 4 MG/2 ML SDV IVPUSH ONE (13:23)
[2023-05-23] MEDS ORDERED: Sodium Chloride 0.9% 10 ML Syringe FLUSH PRN (13:23)
[2023-05-23] MEDS ORDERED: Sodium Chloride 0.9% 2.5 ML Syringe FLUSH PRN (13:23)
[2023-05-23] MEDS ORDERED: HYDROmorphone 1 MG/ML Syringe IVPUSH ONE (13:23)
[2023-05-23] MEDS ORDERED: Sodium Chloride 0.9% 500 ML IV SCH (13:30)
[2023-05-23 13:46] LABS: BASOPHILS ABSOLUTE AUTO 0.02 K/uL (0.00-0.20); BASOPHILS PERCENT AUTO 0.2 % (0.0-1.0); EOSINOPHILS ABSOLUTE AUTO 0.14 K/uL (0.00-0.45); EOSINOPHILS PERCENT AUTO 1.1 % (0.0-6.0); HEMATOCRIT 48.5 % (42.0-52.0); HEMOGLOBIN 16.5 g/dL (14.0-18.0); IMMATURE GRAN ABSOLUTE AUTO 0.04 K/uL (0.00-0.05); IMMATURE GRAN PERCENT AUTO 0.3 % (0.0-0.4); LYMPHOCYTES ABSOLUTE AUTO 1.05 K/uL (1.00-4.80); MEAN CORPUSCULAR HEMOGLOBIN 29.3 pg (28.0-32.0); MEAN PLATELET VOLUME 8.8 fL (9.4-12.4); MONOCYTES ABSOLUTE AUTO 1.02 K/uL (0.00-0.80); MONOCYTES PERCENT AUTO 7.8 % (0.0-8.0); NEUTROPHILS ABSOLUTE AUTO 10.85 K/uL (1.80-7.70); NEUTROPHILS PERCENT AUTO 82.6 % (41.0-71.0); PLATELET COUNT,PLT 270 K/uL (150-400); RED BLOOD CELL COUNT 5.64 M/uL (4.52-5.90); WHITE BLOOD CELL COUNT,WBC 13.12 K/uL (3.9-11.3)
[2023-05-23 13:54] LABS: INR 1.07 (0.86-1.11)
[2023-05-23 14:16] LABS: A/G RATIO 1.1 (0.9-1.6); ALBUMIN 4.1 g/dL (3.4-5.0); BILIRUBIN TOTAL 0.6 mg/dL (0.2-1.0); CALCIUM 9.6 mg/dL (8.5-10.1); CARBON DIOXIDE,CO2 27.6 mmol/L (21.0-32.0); CREATININE 1.3 mg/dL (0.8-1.3); EST CRCL DRUG DOSING (CG) 57.92 mL/min; POTASSIUM,K 4.2 mmol/L (3.5-5.1); PROTEIN TOTAL,TP 7.7 g/dL (6.4-8.2)
[2023-05-23 14:17] LABS: LACTIC ACID 1.5 mmol/L (0.4-2.0)
[2023-05-23] MEDS ORDERED: Iopamidol 755 MG/ML 500 ML Multipack Bottle IVPUSH STA (15:56)
[2023-05-23] MEDS ORDERED: HYDROmorphone 1 MG/ML Syringe IVPUSH STA (16:08)
[2023-05-23 19:39] VITALS: BP 109/73; PULSE 79
== END 2023-05-23 20:45 | disposition other institution (70) ==
LOC: MW.ED 13:07
DX: R10.11 Right upper quadrant pain (principal); K21.9 Gastro-esophageal reflux disease without esophagitis; E66.9 Obesity, unspecified; Z79.899 Other long term (current) drug therapy; Z88.5 Allergy status to narcotic agent; Z20.822 Contact with and (suspected) exposure to COVID-19; Z68.32 Body mass index [BMI] 32.0-32.9, adult
CPT/HCPCS: 36415; 71045; 71275; 74174; 80053; 83605; 83690; 84484; 85025; 85379; 85610; 93005; 96374; 96375; 96376; 99285; J1170; J2405; J3490; J7040; Q9967; U0002; 93010; 99284

== ENCOUNTER 2024-10-25 18:27 | Emergency (ER) | payer MEDICARE, OTHER ==
[2024-10-25 19:14] VITALS: BP 102/65; PULSE 75
== END 2024-10-25 19:13 | disposition home or self-care (01) ==
LOC: MW.ED 18:27
DX: H11.31 Conjunctival hemorrhage, right eye (principal); E66.9 Obesity, unspecified; Z88.5 Allergy status to narcotic agent; Z79.899 Other long term (current) drug therapy
CPT/HCPCS: 99282

== ENCOUNTER 2025-05-11 06:51 | Day surgery (SDC) | payer MEDICARE, OTHER ==
[2025-05-11] MEDS ORDERED: Ketamine HCL/NACL, ISO-OSM 50 MG/5 ML Syringe ONE ×2 (07:06→07:56)
[2025-05-11] MEDS ORDERED: propofoL 500 MG/50 ML 50 ML ONE (07:06)
[2025-05-11] MEDS ORDERED: dexmedeTOMIDine HCl 200 MCG/2 ML SDV ONE (07:11)
[2025-05-11] MEDS: Lactated Ringers 1,000 ML IV SCH (07:20)
[2025-05-11] MEDS ORDERED: Magnesium Sulfate (4.06 MEQ/ML) 5 GM/10 ML SDV ONE (07:21)
[2025-05-11] MEDS ORDERED: Ondansetron 4 MG/2 ML SDV ONE ×2 (07:21→08:05)
[2025-05-11] MEDS ORDERED: Propofol 200 MG/20 ML SDV ONE (07:41)
[2025-05-11] MEDS ORDERED: Lactated Ringers 1,000 ML IV SCH (08:45)
[2025-05-11] MEDS ORDERED: ePHEDrine 50 MG/ML SDV ONE (08:55)
[2025-05-11 10:24] VITALS: PULSE 67
[2025-05-11 10:32] VITALS: BP 90/52
== END 2025-05-11 10:35 | disposition home or self-care (01) ==
LOC: MW.SDS 06:51
PROVIDERS: ATTEND Surgery
DX: Z09 Encounter for follow-up examination after completed treatment for conditions other than malignant neoplasm (principal); K21.9 Gastro-esophageal reflux disease without esophagitis; K29.70 Gastritis, unspecified, without bleeding; K44.9 Diaphragmatic hernia without obstruction or gangrene; I10 Essential (primary) hypertension; K57.30 Diverticulosis of large intestine without perforation or abscess without bleeding; E66.9 Obesity, unspecified; Z88.5 Allergy status to narcotic agent; Z79.01 Long term (current) use of anticoagulants; Z90.49 Acquired absence of other specified parts of digestive tract; Z68.33 Body mass index [BMI] 33.0-33.9, adult; Z87.19 Personal history of other diseases of the digestive system; Z79.899 Other long term (current) drug therapy; Z86.0100 Personal history of colon polyps, unspecified
CPT/HCPCS: 43239; 88305; G0121; J2003; J2371; J2405; J2704; J2710; J2765; J3475; J7120; 00813; J3490